=== PATIENT | female | born 1930 | race African-American/Black ===

== ENCOUNTER 2021-05-05 00:55 | Inpatient (IN) | payer MEDICARE, OTHER ==
[2021-05-05 01:35] LABS: #Monocytes 0.9 thou/uL (0.11-0.59); #Neutrophils 7.8 thou/uL (1.40-6.50); %Basophils 0.1 % (0.0-1.0); %Eosinophils 0.2 % (0.0-10.0); %Lymphocytes 18.7 % (21.0-51.0); %Monocytes 8.7 % (0.0-10.0); %Neutrophils 72.3 % (42.0-75.0); Hemoglobin 11.7 g/dL (12.0-16.0); Mean Corpuscular Hemoglobin 29.6 pg (27.0-31.0); Mean Corpuscular Volume 95.3 fL (78.0-98.0); Platelet Count 309 thou/uL (130-400); Red Blood Cell (RBC) Count 3.97 mill/uL (4.20-5.40); White Blood Cell (WBC) Count 10.7 thou/uL (4.8-10.8)
[2021-05-05 01:56] LABS: ALT (SGPT) 12 U/L (8-55); AST (SGOT) 16 U/L (5-34); Albumin 3.1 g/dL (3.4-4.8); Alkaline Phosphatase 74 U/L (40-110); Anion Gap 11 mmol/L (10-20); BUN (Urea Nitrogen) 13 mg/dL (9.8-20.1); Bilirubin, Total 1.1 mg/dL (0.2-1.2); Calc. Creatinine Clearance 0 mL/min (70-130); Calcium 11.7 mg/dL (7.8-10.44); Carbon Dioxide 27 mmol/L (23-31); Chloride 105 mmol/L (98-107); Globulin 3.4 g/dL (2.4-3.5); Glucose 103 mg/dL (83-110); Potassium 3.4 mmol/L (3.5-5.1); Protein, Total 6.5 g/dL (5.8-8.1); Sodium 140 mmol/L (136-145)
[2021-05-05] MEDS ORDERED: Aspirin Chewable 81 MG TAB ONE (04:10)
[2021-05-05] MEDS ORDERED: hydrALAZINE 20 MG/ML VIAL SLOW IVP PRN (08:14)
[2021-05-05] MEDS ORDERED: Clopidogrel Bisulfate 75 MG TAB PO SCH (09:00)
[2021-05-05] MEDS: Trospium 20 MG TAB PO SCH ×2 (10:36→22:25)
[2021-05-05] MEDS: Furosemide 20 MG TAB PO SCH (10:37)
[2021-05-05] MEDS: Enoxaparin Sodium 40 MG/0.4 ML SYRINGE SC SCH (10:37)
[2021-05-05] MEDS: Timolol 0.5% Ophth Soln 5 ml Bottle EA EYE SCH ×2 (12:12→22:31)
[2021-05-05] MEDS: Brimonidine Tartrate 0.2% Ophth Soln 5 ml Bottle EA EYE SCH ×2 (12:13→22:29)
[2021-05-05 15:25] LABS: SARS-CoV-2 PCR by NAA Not Detected (NotDetected)
[2021-05-05] MEDS ORDERED: Potassium Chloride 20 MEQ TAB PO SCH (16:00)
[2021-05-05 17:15] LABS: Hemoglobin A1c 5.4 % (4.0-6.0)
[2021-05-05 17:25] LABS: Bilirubin Negative (Negative); Blood, Urine Negative (Negative); Clarity Turbid (Clear); Glucose, Urine (Dipstick) Normal (Negative); Ketone, Urine Trace mg/dL (Negative); Leukocyte Negative Leu/uL (Negative); Nitrite Negative (Negative); Protein, Urine (Dipstick) Negative (Neg-Trace); RBC/HPF 0-3 HPF (0-3); Specific Gravity, Urine 1.018 (1.002-1.036)
[2021-05-05 17:31] LABS: Bacteria/HPF 1+ HPF (None Seen)
[2021-05-05 17:32] LABS: Urine Culture Reflex No No
[2021-05-05 17:42] LABS: Thyroid Stimulating Hormone Less than 0.0025 uIU/mL (0.35-4.94); Vitamin B12 363 pg/mL (211-911)
[2021-05-05] MEDS: Acetaminophen 325 MG TAB PO PRN (22:24)
[2021-05-05] MEDS: Atorvastatin Calcium 40 MG TAB PO SCH (22:25)
[2021-05-05] MEDS: Brinzolamide 1% Ophth SUSP 10 ml Bottle EA EYE SCH (22:29)
[2021-05-05] MEDS: Latanoprost 0.005% Ophth Soln 2.5 ml Bottle EA EYE SCH (22:29)
[2021-05-06 05:28] LABS: #Lymphocytes 1.8 thou/uL (1.20-3.40); #Monocytes 0.8 thou/uL (0.11-0.59); #Neutrophils 5.7 thou/uL (1.40-6.50); %Basophils 0.4 % (0.0-1.0); %Eosinophils 0.6 % (0.0-10.0); %Lymphocytes 21.3 % (21.0-51.0); %Monocytes 9.3 % (0.0-10.0); %Neutrophils 68.5 % (42.0-75.0); Hemoglobin 11.2 g/dL (12.0-16.0); Mean Corpuscular HGB CONC 32.8 g/dL (32.0-36.0); Mean Corpuscular Hemoglobin 31.5 pg (27.0-31.0); Mean Platelet Volume 7.7 fL (7.4-10.4); Platelet Count 280 thou/uL (130-400); RBC Distribution Width 11.8 % (11.5-14.5); Red Blood Cell (RBC) Count 3.55 mill/uL (4.20-5.40); White Blood Cell (WBC) Count 8.3 thou/uL (4.8-10.8)
[2021-05-06 05:47] LABS: Anion Gap 10 mmol/L (10-20); BUN (Urea Nitrogen) 13 mg/dL (9.8-20.1); Calc. Creatinine Clearance 62 mL/min (70-130); Calcium 11.6 mg/dL (7.8-10.44); Carbon Dioxide 27 mmol/L (23-31); Cardiac Risk 3.3 (Less than 4.5); Chloride 104 mmol/L (98-107); Cholesterol 109 mg/dl (< 200 Desired); Glucose 95 mg/dL (83-110); HDL Cholesterol 33 mg/dL (>60 Neg Risk); LDL Cholesterol, Calculated 67 mg/dL; Potassium 3.5 mmol/L (3.5-5.1); Sodium 137 mmol/L (136-145); Triglycerides 46 mg/dL (Less than 150)
[2021-05-06] MEDS: Enoxaparin Sodium 40 MG/0.4 ML SYRINGE SC SCH (08:42)
[2021-05-06] MEDS: Furosemide 20 MG TAB PO SCH (08:42)
[2021-05-06] MEDS: Clopidogrel Bisulfate 75 MG TAB PO SCH (08:42)
[2021-05-06] MEDS: Trospium 20 MG TAB PO SCH ×2 (08:42→21:08)
[2021-05-06] MEDS: Brinzolamide 1% Ophth SUSP 10 ml Bottle EA EYE SCH ×2 (08:43→21:09)
[2021-05-06] MEDS: Brimonidine Tartrate 0.2% Ophth Soln 5 ml Bottle EA EYE SCH ×2 (08:43→21:10)
[2021-05-06] MEDS: Timolol 0.5% Ophth Soln 5 ml Bottle EA EYE SCH ×2 (09:01→21:09)
[2021-05-06] MEDS ORDERED: hydrALAZINE 20 MG/ML VIAL SLOW IVP PRN (15:50)
[2021-05-06] MEDS ORDERED: Amlodipine 10 MG TAB PO SCH (16:00)
[2021-05-06] MEDS: Atorvastatin Calcium 40 MG TAB PO SCH (21:08)
[2021-05-06] MEDS: Latanoprost 0.005% Ophth Soln 2.5 ml Bottle EA EYE SCH (21:09)
[2021-05-07 05:33] LABS: #Lymphocytes 1.8 thou/uL (1.20-3.40); #Monocytes 0.6 thou/uL (0.11-0.59); %Basophils 0.2 % (0.0-1.0); %Eosinophils 0.6 % (0.0-10.0); %Monocytes 7.4 % (0.0-10.0); %Neutrophils 67.8 % (42.0-75.0); Hemoglobin 11.3 g/dL (12.0-16.0); Mean Corpuscular HGB CONC 32.1 g/dL (32.0-36.0); Mean Corpuscular Hemoglobin 30.6 pg (27.0-31.0); Mean Corpuscular Volume 95.4 fL (78.0-98.0); Mean Platelet Volume 7.4 fL (7.4-10.4); Platelet Count 305 thou/uL (130-400); RBC Distribution Width 11.8 % (11.5-14.5); Red Blood Cell (RBC) Count 3.69 mill/uL (4.20-5.40); White Blood Cell (WBC) Count 7.4 thou/uL (4.8-10.8)
[2021-05-07 05:49] LABS: Anion Gap 12 mmol/L (10-20); BUN (Urea Nitrogen) 13 mg/dL (9.8-20.1); Calc. Creatinine Clearance 58 mL/min (70-130); Calcium 11.8 mg/dL (7.8-10.44); Carbon Dioxide 25 mmol/L (23-31); Chloride 106 mmol/L (98-107); Glucose 91 mg/dL (83-110); Potassium 3.6 mmol/L (3.5-5.1); Sodium 139 mmol/L (136-145)
[2021-05-07] MEDS ORDERED: Hydrocerin (Eucerin) Cream 120 gm Jar TOP PRN (08:17)
[2021-05-07] MEDS ORDERED: Loperamide HCl 2 MG CAP PO PRN (08:17)
[2021-05-07] MEDS ORDERED: Senokot S 8.6-50 MG TAB PO PRN (08:17)
[2021-05-07] MEDS ORDERED: Melatonin 3 MG TAB PO PRN (08:17)
[2021-05-07] MEDS ORDERED: Sodium Chloride 0.65% Nasal 44 ML BOT EA NARE PRN (08:17)
[2021-05-07] MEDS ORDERED: Artificial Tear Sol 15 ML BOT EA EYE PRN (08:17)
[2021-05-07] MEDS ORDERED: GUAIFENESIN SF SOLN 200 MG/10 ML UDCUP PO PRN (08:17)
[2021-05-07] MEDS ORDERED: Ondansetron ODT 4 MG TAB PO PRN (08:17)
[2021-05-07] MEDS ORDERED: Calcium Carbonate 500 MG ChewTAB PO PRN (08:17)
[2021-05-07] MEDS ORDERED: Ondansetron PF 4 MG/2 ML Vial IVP PRN (08:17)
[2021-05-07] MEDS: Furosemide 20 MG TAB PO SCH (08:46)
[2021-05-07] MEDS: Trospium 20 MG TAB PO SCH ×3 (08:46→21:29)
[2021-05-07] MEDS: Enoxaparin Sodium 40 MG/0.4 ML SYRINGE SC SCH (08:46)
[2021-05-07] MEDS: Clopidogrel Bisulfate 75 MG TAB PO SCH (08:46)
[2021-05-07] MEDS: Brimonidine Tartrate 0.2% Ophth Soln 5 ml Bottle EA EYE SCH ×2 (08:46→21:29)
[2021-05-07] MEDS: Timolol 0.5% Ophth Soln 5 ml Bottle EA EYE SCH ×2 (08:47→21:29)
[2021-05-07] MEDS: Brinzolamide 1% Ophth SUSP 10 ml Bottle EA EYE SCH ×2 (08:57→21:29)
[2021-05-07] MEDS: Amlodipine 10 MG TAB PO SCH (09:00)
[2021-05-07] MEDS: Atorvastatin Calcium 40 MG TAB PO SCH (21:26)
[2021-05-07] MEDS: Latanoprost 0.005% Ophth Soln 2.5 ml Bottle EA EYE SCH (21:29)
[2021-05-08 05:35] LABS: #Eosinphils 0.1 thou/uL (0.0-0.7); #Lymphocytes 1.8 thou/uL (1.20-3.40); #Monocytes 0.6 thou/uL (0.11-0.59); #Neutrophils 5.1 thou/uL (1.40-6.50); %Basophils 0.3 % (0.0-1.0); %Eosinophils 0.7 % (0.0-10.0); %Lymphocytes 23.1 % (21.0-51.0); %Monocytes 8.3 % (0.0-10.0); %Neutrophils 67.7 % (42.0-75.0); Hemoglobin 11.2 g/dL (12.0-16.0); Mean Corpuscular HGB CONC 31.6 g/dL (32.0-36.0); Mean Corpuscular Hemoglobin 29.9 pg (27.0-31.0); Mean Corpuscular Volume 94.5 fL (78.0-98.0); Mean Platelet Volume 7.2 fL (7.4-10.4); Platelet Count 327 thou/uL (130-400); Red Blood Cell (RBC) Count 3.74 mill/uL (4.20-5.40); White Blood Cell (WBC) Count 7.6 thou/uL (4.8-10.8)
[2021-05-08 05:47] LABS: Anion Gap 11 mmol/L (10-20); BUN (Urea Nitrogen) 12 mg/dL (9.8-20.1); Calc. Creatinine Clearance 58 mL/min (70-130); Calcium 11.6 mg/dL (7.8-10.44); Carbon Dioxide 27 mmol/L (23-31); Chloride 104 mmol/L (98-107); Glucose 86 mg/dL (83-110); Magnesium 1.8 mg/dL (1.6-2.6); Potassium 3.4 mmol/L (3.5-5.1); Sodium 139 mmol/L (136-145)
[2021-05-08] MEDS ORDERED: Trospium 20 MG TAB PO SCH (09:00)
[2021-05-08] MEDS: Amlodipine 10 MG TAB PO SCH (09:06)
[2021-05-08] MEDS: Clopidogrel Bisulfate 75 MG TAB PO SCH (09:06)
[2021-05-08] MEDS: Enoxaparin Sodium 40 MG/0.4 ML SYRINGE SC SCH ×2 (09:07→09:09)
[2021-05-08] MEDS: Furosemide 20 MG TAB PO SCH (09:07)
[2021-05-08] MEDS: Brinzolamide 1% Ophth SUSP 10 ml Bottle EA EYE SCH ×2 (09:14→22:14)
[2021-05-08] MEDS: Brimonidine Tartrate 0.2% Ophth Soln 5 ml Bottle EA EYE SCH ×2 (09:17→22:13)
[2021-05-08] MEDS: Timolol 0.5% Ophth Soln 5 ml Bottle EA EYE SCH ×2 (09:18→22:17)
[2021-05-08] MEDS ORDERED: Senokot S 8.6-50 MG TAB PO PRN (12:00)
[2021-05-08] MEDS ORDERED: Senokot S 8.6-50 MG TAB PO SCH (12:15)
[2021-05-08] MEDS ORDERED: Magnesium 2 GM/50 ML(in water) 2 GM in Premix Bag 1 BAG IVPB SCH (12:15)
[2021-05-08] MEDS ORDERED: Polyethylene Glycol 3350 17 GM Packet PO SCH (12:15)
[2021-05-08] MEDS ORDERED: Potassium Phosphate 30 MMOL in Sodium Chloride 0.9% 250 ML 250 ML IVPB SCH (12:30)
[2021-05-08] MEDS: Senokot S 8.6-50 MG TAB PO SCH (13:24)
[2021-05-08] MEDS: Sodium Chloride 0.9% 1,000 ML IV SCH (13:25)
[2021-05-08] MEDS: Acetaminophen 325 MG TAB PO PRN (14:06)
[2021-05-08] MEDS ORDERED: Bisacodyl 10 MG SUPP PR SCH (21:00)
[2021-05-08] MEDS: Atorvastatin Calcium 40 MG TAB PO SCH (22:16)
[2021-05-08] MEDS: Cyanocobalamin (Vitamin B-12) 1,000 MCG TAB PO SCH (22:16)
[2021-05-08] MEDS: Latanoprost 0.005% Ophth Soln 2.5 ml Bottle EA EYE SCH (22:17)
[2021-05-09 05:10] LABS: Anion Gap 12 mmol/L (10-20); BUN (Urea Nitrogen) 11 mg/dL (9.8-20.1); Calc. Creatinine Clearance 58 mL/min (70-130); Calcium 11.2 mg/dL (7.8-10.44); Carbon Dioxide 24 mmol/L (23-31); Chloride 104 mmol/L (98-107); Glucose 105 mg/dL (83-110); Potassium 3.5 mmol/L (3.5-5.1); Sodium 136 mmol/L (136-145)
[2021-05-09 05:12] LABS: Phosphorus 1.9 mg/dL (2.3-4.7)
[2021-05-09] MEDS ORDERED: Potassium Chloride 20 MEQ TAB PO SCH (05:45)
[2021-05-09] MEDS ORDERED: Magnesium 2 GM/50 ML(in water) 2 GM in Premix Bag 1 BAG IVPB SCH (05:45)
[2021-05-09] MEDS ORDERED: Electrolyte Replacement Protocol FS PRN (05:45)
[2021-05-09] MEDS: PHOS-NAK 1 PKT PACK PO SCH ×2 (06:21→09:57)
[2021-05-09] MEDS: Brinzolamide 1% Ophth SUSP 10 ml Bottle EA EYE SCH ×2 (08:22→20:53)
[2021-05-09] MEDS: Brimonidine Tartrate 0.2% Ophth Soln 5 ml Bottle EA EYE SCH ×2 (08:23→20:53)
[2021-05-09] MEDS: Amlodipine 10 MG TAB PO SCH (08:24)
[2021-05-09] MEDS: Clopidogrel Bisulfate 75 MG TAB PO SCH (08:25)
[2021-05-09] MEDS: Senokot S 8.6-50 MG TAB PO SCH ×2 (08:26→20:57)
[2021-05-09] MEDS: Timolol 0.5% Ophth Soln 5 ml Bottle EA EYE SCH ×2 (08:27→21:03)
[2021-05-09] MEDS ORDERED: Polyethylene Glycol 3350 17 GM Packet PO SCH ×2 (09:00→11:00)
[2021-05-09] MEDS ORDERED: Potassium Phosphate 30 MMOL in Sodium Chloride 0.9% 250 ML 250 ML IVPB SCH (09:00)
[2021-05-09] MEDS: Sodium Chloride 0.9% 1,000 ML IV SCH (09:58)
[2021-05-09] MEDS ORDERED: Bisacodyl 10 MG SUPP PR SCH (11:15)
[2021-05-09] MEDS: Atorvastatin Calcium 40 MG TAB PO SCH (20:55)
[2021-05-09] MEDS: Cyanocobalamin (Vitamin B-12) 1,000 MCG TAB PO SCH (20:55)
[2021-05-09] MEDS: Polyethylene Glycol 3350 17 GM Packet PO SCH (20:57)
[2021-05-09] MEDS: Bisacodyl 10 MG SUPP PR SCH (20:57)
[2021-05-09] MEDS: Latanoprost 0.005% Ophth Soln 2.5 ml Bottle EA EYE SCH (21:03)
[2021-05-10 05:20] LABS: Anion Gap 9 mmol/L (10-20); BUN (Urea Nitrogen) 8 mg/dL (9.8-20.1); Calc. Creatinine Clearance 61 mL/min (70-130); Calcium 10.6 mg/dL (7.8-10.44); Carbon Dioxide 23 mmol/L (23-31); Chloride 108 mmol/L (98-107); Glucose 103 mg/dL (83-110); Potassium 3.9 mmol/L (3.5-5.1); Sodium 136 mmol/L (136-145)
[2021-05-10 05:25] LABS: Phosphorus 1.8 mg/dL (2.3-4.7)
[2021-05-10] MEDS: Sodium Chloride 0.9% 1,000 ML IV SCH ×2 (06:25→21:12)
[2021-05-10] MEDS ORDERED: Potassium Phosphate 15 MMOL in Sodium Chloride 0.9% 100 ML IVPB SCH (09:00)
[2021-05-10] MEDS: Senokot S 8.6-50 MG TAB PO SCH ×3 (09:46→20:55)
[2021-05-10] MEDS: Enoxaparin Sodium 40 MG/0.4 ML SYRINGE SC SCH (09:46)
[2021-05-10] MEDS: Clopidogrel Bisulfate 75 MG TAB PO SCH (09:47)
[2021-05-10] MEDS: Amlodipine 10 MG TAB PO SCH (09:47)
[2021-05-10] MEDS: Polyethylene Glycol 3350 17 GM Packet PO SCH ×2 (09:48→20:56)
[2021-05-10] MEDS: Bisacodyl 10 MG SUPP PR SCH ×2 (09:48→22:51)
[2021-05-10] MEDS: Timolol 0.5% Ophth Soln 5 ml Bottle EA EYE SCH ×2 (09:50→20:56)
[2021-05-10] MEDS: Brimonidine Tartrate 0.2% Ophth Soln 5 ml Bottle EA EYE SCH ×2 (09:50→20:56)
[2021-05-10] MEDS: Brinzolamide 1% Ophth SUSP 10 ml Bottle EA EYE SCH ×2 (09:50→20:56)
[2021-05-10] MEDS: Atorvastatin Calcium 40 MG TAB PO SCH (20:55)
[2021-05-10] MEDS: Latanoprost 0.005% Ophth Soln 2.5 ml Bottle EA EYE SCH (20:57)
[2021-05-10] MEDS: Cyanocobalamin (Vitamin B-12) 1,000 MCG TAB PO SCH (20:57)
[2021-05-10] MEDS: Acetaminophen 325 MG TAB PO PRN (21:07)
[2021-05-11] MEDS: Acetaminophen 325 MG TAB PO PRN ×2 (04:17→20:55)
[2021-05-11 06:18] LABS: BUN (Urea Nitrogen) 6 mg/dL (9.8-20.1); Calc. Creatinine Clearance 65 mL/min (70-130); Calcium 11.2 mg/dL (7.8-10.44); Carbon Dioxide 21 mmol/L (23-31); Chloride 107 mmol/L (98-107); Glucose 79 mg/dL (83-110); Potassium 3.9 mmol/L (3.5-5.1); Sodium 133 mmol/L (136-145)
[2021-05-11 06:26] LABS: Phosphorus 1.8 mg/dL (2.3-4.7)
[2021-05-11 06:29] LABS: Anion Gap 9 mmol/L (10-20)
[2021-05-11] MEDS: Clopidogrel Bisulfate 75 MG TAB PO SCH (08:15)
[2021-05-11] MEDS: Senokot S 8.6-50 MG TAB PO SCH ×2 (08:15→20:54)
[2021-05-11] MEDS: Amlodipine 10 MG TAB PO SCH (08:15)
[2021-05-11] MEDS: Enoxaparin Sodium 40 MG/0.4 ML SYRINGE SC SCH (08:16)
[2021-05-11] MEDS: Polyethylene Glycol 3350 17 GM Packet PO SCH ×2 (08:16→20:55)
[2021-05-11] MEDS: Bisacodyl 10 MG SUPP PR SCH ×2 (08:16→21:35)
[2021-05-11] MEDS: Brimonidine Tartrate 0.2% Ophth Soln 5 ml Bottle EA EYE SCH ×2 (08:16→21:02)
[2021-05-11] MEDS: Timolol 0.5% Ophth Soln 5 ml Bottle EA EYE SCH ×2 (08:16→21:01)
[2021-05-11] MEDS: Brinzolamide 1% Ophth SUSP 10 ml Bottle EA EYE SCH ×2 (08:17→21:01)
[2021-05-11] MEDS ORDERED: Cinacalcet HCl 30 MG TAB PO SCH (09:00)
[2021-05-11] MEDS: Cholecalciferol 1,000 UNITS (25 MCG) TAB PO SCH (10:44)
[2021-05-11] MEDS ORDERED: Potassium Phosphate 15 MMOL in Sodium Chloride 0.9% 100 ML IVPB SCH (11:00)
[2021-05-11] MEDS: Cinacalcet HCl 30 MG TAB PO SCH (17:34)
[2021-05-11] MEDS: Atorvastatin Calcium 40 MG TAB PO SCH (20:54)
[2021-05-11] MEDS: Cyanocobalamin (Vitamin B-12) 1,000 MCG TAB PO SCH (20:55)
[2021-05-11] MEDS: Latanoprost 0.005% Ophth Soln 2.5 ml Bottle EA EYE SCH (21:02)
[2021-05-11 21:26] LABS: SARS-CoV-2 PCR by NAA Not Detected (NotDetected)
[2021-05-11] MEDS: hydrALAZINE 20 MG/ML VIAL SLOW IVP PRN (21:31)
[2021-05-11] MEDS: Sodium Chloride 0.9% 1,000 ML IV SCH (21:35)
[2021-05-12] MEDS: Enoxaparin Sodium 40 MG/0.4 ML SYRINGE SC SCH (08:37)
[2021-05-12] MEDS: Amlodipine 10 MG TAB PO SCH (08:38)
[2021-05-12] MEDS: Clopidogrel Bisulfate 75 MG TAB PO SCH (08:38)
[2021-05-12] MEDS: Cholecalciferol 1,000 UNITS (25 MCG) TAB PO SCH (08:38)
[2021-05-12] MEDS: Cinacalcet HCl 30 MG TAB PO SCH ×2 (08:38→16:46)
[2021-05-12] MEDS: Senokot S 8.6-50 MG TAB PO SCH ×2 (08:38→20:18)
[2021-05-12] MEDS: Bisacodyl 10 MG SUPP PR SCH ×2 (08:38→20:17)
[2021-05-12] MEDS: Timolol 0.5% Ophth Soln 5 ml Bottle EA EYE SCH ×2 (08:39→20:16)
[2021-05-12] MEDS: Polyethylene Glycol 3350 17 GM Packet PO SCH ×2 (08:39→20:18)
[2021-05-12] MEDS: Brinzolamide 1% Ophth SUSP 10 ml Bottle EA EYE SCH ×2 (08:39→20:16)
[2021-05-12] MEDS: Brimonidine Tartrate 0.2% Ophth Soln 5 ml Bottle EA EYE SCH ×2 (08:40→20:16)
[2021-05-12] MEDS: Sodium Chloride 0.9% 1,000 ML IV SCH (16:46)
[2021-05-12] MEDS: hydrALAZINE 20 MG/ML VIAL SLOW IVP PRN (17:41)
[2021-05-12] MEDS: Cyanocobalamin (Vitamin B-12) 1,000 MCG TAB PO SCH (20:14)
[2021-05-12] MEDS: Atorvastatin Calcium 40 MG TAB PO SCH (20:14)
[2021-05-12] MEDS: Acetaminophen 325 MG TAB PO PRN (20:15)
[2021-05-12] MEDS: Latanoprost 0.005% Ophth Soln 2.5 ml Bottle EA EYE SCH (20:16)
[2021-05-13 07:17] LABS: Albumin 2.8 g/dL (3.4-4.8); Anion Gap 10 mmol/L (10-20); BUN (Urea Nitrogen) 8 mg/dL (9.8-20.1); BUN/Creatinine Ratio 14.29; Calc. Creatinine Clearance 60 mL/min (70-130); Calcium 10.2 mg/dL (7.8-10.44); Carbon Dioxide 22 mmol/L (23-31); Chloride 106 mmol/L (98-107); Glucose 66 mg/dL (83-110); Potassium 3.4 mmol/L (3.5-5.1); Sodium 135 mmol/L (136-145)
[2021-05-13 07:22] LABS: Phosphorus 1.7 mg/dL (2.3-4.7)
[2021-05-13] MEDS: Cinacalcet HCl 30 MG TAB PO SCH ×2 (08:41→17:53)
[2021-05-13] MEDS: Amlodipine 10 MG TAB PO SCH (08:41)
[2021-05-13] MEDS: Clopidogrel Bisulfate 75 MG TAB PO SCH (08:41)
[2021-05-13] MEDS: Enoxaparin Sodium 40 MG/0.4 ML SYRINGE SC SCH (08:41)
[2021-05-13] MEDS: Cholecalciferol 1,000 UNITS (25 MCG) TAB PO SCH (08:41)
[2021-05-13] MEDS: Timolol 0.5% Ophth Soln 5 ml Bottle EA EYE SCH ×2 (08:42→20:43)
[2021-05-13] MEDS: Brinzolamide 1% Ophth SUSP 10 ml Bottle EA EYE SCH ×2 (08:42→20:43)
[2021-05-13] MEDS: Brimonidine Tartrate 0.2% Ophth Soln 5 ml Bottle EA EYE SCH ×2 (08:42→20:43)
[2021-05-13] MEDS: Bisacodyl 10 MG SUPP PR SCH (08:43)
[2021-05-13] MEDS: Polyethylene Glycol 3350 17 GM Packet PO SCH ×2 (08:43→20:44)
[2021-05-13] MEDS: Senokot S 8.6-50 MG TAB PO SCH ×2 (08:43→20:44)
[2021-05-13] MEDS: Sodium Chloride 0.9% 1,000 ML IV SCH (12:43)
[2021-05-13] MEDS: Latanoprost 0.005% Ophth Soln 2.5 ml Bottle EA EYE SCH (20:43)
[2021-05-13] MEDS: Acetaminophen 325 MG TAB PO SCH (20:44)
[2021-05-13] MEDS: Atorvastatin Calcium 40 MG TAB PO SCH (20:44)
[2021-05-13] MEDS: Cyanocobalamin (Vitamin B-12) 1,000 MCG TAB PO SCH (20:44)
[2021-05-14 07:44] LABS: #Basophils 0.1 thou/uL (0.0-0.2); #Eosinphils 0.1 thou/uL (0.0-0.7); #Lymphocytes 1.7 thou/uL (1.20-3.40); #Monocytes 0.7 thou/uL (0.11-0.59); #Neutrophils 8.2 thou/uL (1.40-6.50); %Basophils 0.6 % (0.0-1.0); %Eosinophils 0.8 % (0.0-10.0); %Lymphocytes 16.1 % (21.0-51.0); %Monocytes 6.5 % (0.0-10.0); %Neutrophils 76.1 % (42.0-75.0); Hemoglobin 12.3 g/dL (12.0-16.0); Mean Corpuscular HGB CONC 32.8 g/dL (32.0-36.0); Mean Corpuscular Hemoglobin 31.2 pg (27.0-31.0); Mean Platelet Volume 6.5 fL (7.4-10.4); Platelet Count 365 thou/uL (130-400); RBC Distribution Width 12.1 % (11.5-14.5); Red Blood Cell (RBC) Count 3.93 mill/uL (4.20-5.40); White Blood Cell (WBC) Count 10.7 thou/uL (4.8-10.8)
[2021-05-14 08:03] LABS: Anion Gap 10 mmol/L (10-20); BUN (Urea Nitrogen) 6 mg/dL (9.8-20.1); BUN/Creatinine Ratio 11.32; Calc. Creatinine Clearance 63 mL/min (70-130); Calcium 9.4 mg/dL (7.8-10.44); Carbon Dioxide 23 mmol/L (23-31); Chloride 106 mmol/L (98-107); Glucose 86 mg/dL (83-110); Potassium 3.4 mmol/L (3.5-5.1); Sodium 136 mmol/L (136-145)
[2021-05-14 08:10] LABS: Phosphorus 1.9 mg/dL (2.3-4.7)
[2021-05-14] MEDS: Amlodipine 10 MG TAB PO SCH (08:21)
[2021-05-14] MEDS: Cinacalcet HCl 30 MG TAB PO SCH ×2 (08:22→16:53)
[2021-05-14] MEDS: Cholecalciferol 1,000 UNITS (25 MCG) TAB PO SCH (08:22)
[2021-05-14] MEDS: Senokot S 8.6-50 MG TAB PO SCH ×2 (08:22→20:22)
[2021-05-14] MEDS: Clopidogrel Bisulfate 75 MG TAB PO SCH (08:22)
[2021-05-14] MEDS: Enoxaparin Sodium 40 MG/0.4 ML SYRINGE SC SCH (08:23)
[2021-05-14] MEDS: Brinzolamide 1% Ophth SUSP 10 ml Bottle EA EYE SCH ×2 (08:23→20:24)
[2021-05-14] MEDS: Brimonidine Tartrate 0.2% Ophth Soln 5 ml Bottle EA EYE SCH ×2 (08:23→20:24)
[2021-05-14] MEDS: Timolol 0.5% Ophth Soln 5 ml Bottle EA EYE SCH ×2 (08:23→20:23)
[2021-05-14] MEDS: Polyethylene Glycol 3350 17 GM Packet PO SCH (08:24)
[2021-05-14] MEDS: Sodium Chloride 0.9% 1,000 ML IV SCH (08:26)
[2021-05-14] MEDS ORDERED: Potassium Phosphate 30 MMOL in Sodium Chloride 0.9% 250 ML 250 ML IVPB SCH (08:45)
[2021-05-14] MEDS ORDERED: hydrALAZINE 25 MG TAB PO PRN (14:38)
[2021-05-14] MEDS ORDERED: Electrolyte Replacement Protocol 1 EACH FS SCH (15:00)
[2021-05-14] MEDS: Atorvastatin Calcium 40 MG TAB PO SCH (20:22)
[2021-05-14] MEDS: Cyanocobalamin (Vitamin B-12) 1,000 MCG TAB PO SCH (20:22)
[2021-05-14] MEDS: Acetaminophen 325 MG TAB PO SCH (20:23)
[2021-05-14] MEDS: Latanoprost 0.005% Ophth Soln 2.5 ml Bottle EA EYE SCH (20:24)
[2021-05-15 06:37] LABS: Albumin 2.8 g/dL (3.4-4.8); Anion Gap 11 mmol/L (10-20); BUN (Urea Nitrogen) 8 mg/dL (9.8-20.1); BUN/Creatinine Ratio 15.09; Calc. Creatinine Clearance 63 mL/min (70-130); Calcium 9.4 mg/dL (7.8-10.44); Carbon Dioxide 23 mmol/L (23-31); Chloride 106 mmol/L (98-107); Glucose 96 mg/dL (83-110); Potassium 3.4 mmol/L (3.5-5.1); Sodium 137 mmol/L (136-145)
[2021-05-15 06:42] LABS: Phosphorus 1.8 mg/dL (2.3-4.7)
[2021-05-15] MEDS ORDERED: Potassium Bicarbonate/Cit Ac 20 MEQ TAB PO SCH (08:00)
[2021-05-15] MEDS ORDERED: Potassium Chloride 20 MEQ TAB PO SCH (08:00)
[2021-05-15] MEDS: PHOS-NAK 1 PKT PACK PO SCH ×2 (08:23→11:40)
[2021-05-15] MEDS: Amlodipine 10 MG TAB PO SCH (08:25)
[2021-05-15] MEDS: Senokot S 8.6-50 MG TAB PO SCH ×2 (08:25→21:22)
[2021-05-15] MEDS: Brinzolamide 1% Ophth SUSP 10 ml Bottle EA EYE SCH ×2 (08:25→21:23)
[2021-05-15] MEDS: Cholecalciferol 1,000 UNITS (25 MCG) TAB PO SCH (08:25)
[2021-05-15] MEDS: Cinacalcet HCl 30 MG TAB PO SCH ×2 (08:25→16:48)
[2021-05-15] MEDS: Clopidogrel Bisulfate 75 MG TAB PO SCH (08:25)
[2021-05-15] MEDS: Enoxaparin Sodium 40 MG/0.4 ML SYRINGE SC SCH (08:26)
[2021-05-15] MEDS: Brimonidine Tartrate 0.2% Ophth Soln 5 ml Bottle EA EYE SCH ×2 (08:26→21:23)
[2021-05-15] MEDS: Timolol 0.5% Ophth Soln 5 ml Bottle EA EYE SCH ×2 (08:26→21:23)
[2021-05-15] MEDS: Polyethylene Glycol 3350 17 GM Packet PO SCH (08:26)
[2021-05-15] MEDS: Acetaminophen 325 MG TAB PO SCH (21:22)
[2021-05-15] MEDS: Atorvastatin Calcium 40 MG TAB PO SCH (21:22)
[2021-05-15] MEDS: Cyanocobalamin (Vitamin B-12) 1,000 MCG TAB PO SCH (21:22)
[2021-05-15] MEDS: Latanoprost 0.005% Ophth Soln 2.5 ml Bottle EA EYE SCH (21:22)
[2021-05-16] MEDS: Enoxaparin Sodium 40 MG/0.4 ML SYRINGE SC SCH (08:50)
[2021-05-16] MEDS: Amlodipine 10 MG TAB PO SCH (08:52)
[2021-05-16] MEDS: Cinacalcet HCl 30 MG TAB PO SCH ×2 (08:52→16:52)
[2021-05-16] MEDS: Senokot S 8.6-50 MG TAB PO SCH ×2 (08:52→19:58)
[2021-05-16] MEDS: Cholecalciferol 1,000 UNITS (25 MCG) TAB PO SCH (08:52)
[2021-05-16] MEDS: Clopidogrel Bisulfate 75 MG TAB PO SCH (08:53)
[2021-05-16] MEDS: Brimonidine Tartrate 0.2% Ophth Soln 5 ml Bottle EA EYE SCH ×2 (08:58→19:59)
[2021-05-16] MEDS: Brinzolamide 1% Ophth SUSP 10 ml Bottle EA EYE SCH ×2 (08:59→19:59)
[2021-05-16] MEDS: Polyethylene Glycol 3350 17 GM Packet PO SCH (09:00)
[2021-05-16] MEDS: Timolol 0.5% Ophth Soln 5 ml Bottle EA EYE SCH ×2 (09:00→19:59)
[2021-05-16] MEDS: Acetaminophen 325 MG TAB PO SCH (19:57)
[2021-05-16] MEDS: Atorvastatin Calcium 40 MG TAB PO SCH (19:58)
[2021-05-16] MEDS: Cyanocobalamin (Vitamin B-12) 1,000 MCG TAB PO SCH (19:58)
[2021-05-16] MEDS: Potassium Chloride 10 MEQ TAB PO SCH (19:58)
[2021-05-16] MEDS: Latanoprost 0.005% Ophth Soln 2.5 ml Bottle EA EYE SCH (19:59)
[2021-05-17] MEDS: Brinzolamide 1% Ophth SUSP 10 ml Bottle EA EYE SCH ×2 (09:07→20:34)
[2021-05-17] MEDS: Brimonidine Tartrate 0.2% Ophth Soln 5 ml Bottle EA EYE SCH ×2 (09:07→20:34)
[2021-05-17] MEDS: Timolol 0.5% Ophth Soln 5 ml Bottle EA EYE SCH ×2 (09:07→20:34)
[2021-05-17] MEDS: Enoxaparin Sodium 40 MG/0.4 ML SYRINGE SC SCH (09:08)
[2021-05-17] MEDS: Potassium Chloride 10 MEQ TAB PO SCH ×2 (09:09→20:33)
[2021-05-17] MEDS: Senokot S 8.6-50 MG TAB PO SCH ×2 (09:09→20:32)
[2021-05-17] MEDS: Clopidogrel Bisulfate 75 MG TAB PO SCH (09:10)
[2021-05-17] MEDS: Cinacalcet HCl 30 MG TAB PO SCH ×2 (09:10→16:43)
[2021-05-17] MEDS: Amlodipine 10 MG TAB PO SCH (09:10)
[2021-05-17] MEDS: Cholecalciferol 1,000 UNITS (25 MCG) TAB PO SCH (09:10)
[2021-05-17] MEDS: Polyethylene Glycol 3350 17 GM Packet PO SCH (09:15)
[2021-05-17] MEDS: hydrALAZINE 25 MG TAB PO SCH ×2 (16:43→20:33)
[2021-05-17] MEDS: Acetaminophen 325 MG TAB PO SCH (20:32)
[2021-05-17] MEDS: Atorvastatin Calcium 40 MG TAB PO SCH (20:33)
[2021-05-17] MEDS: Cyanocobalamin (Vitamin B-12) 1,000 MCG TAB PO SCH (20:33)
[2021-05-17] MEDS: Latanoprost 0.005% Ophth Soln 2.5 ml Bottle EA EYE SCH (20:34)
[2021-05-18] MEDS: Amlodipine 10 MG TAB PO SCH (09:34)
[2021-05-18] MEDS: Potassium Chloride 10 MEQ TAB PO SCH ×2 (09:34→22:14)
[2021-05-18] MEDS: Cinacalcet HCl 30 MG TAB PO SCH ×2 (09:35→16:45)
[2021-05-18] MEDS: Cholecalciferol 1,000 UNITS (25 MCG) TAB PO SCH (09:35)
[2021-05-18] MEDS: hydrALAZINE 25 MG TAB PO SCH ×3 (09:35→22:14)
[2021-05-18] MEDS: Enoxaparin Sodium 40 MG/0.4 ML SYRINGE SC SCH (09:37)
[2021-05-18] MEDS: Clopidogrel Bisulfate 75 MG TAB PO SCH (09:37)
[2021-05-18] MEDS: Brimonidine Tartrate 0.2% Ophth Soln 5 ml Bottle EA EYE SCH ×2 (09:38→22:11)
[2021-05-18] MEDS: Timolol 0.5% Ophth Soln 5 ml Bottle EA EYE SCH ×2 (09:39→22:16)
[2021-05-18] MEDS: Brinzolamide 1% Ophth SUSP 10 ml Bottle EA EYE SCH ×2 (09:40→22:16)
[2021-05-18] MEDS: Polyethylene Glycol 3350 17 GM Packet PO SCH (09:44)
[2021-05-18] MEDS: Senokot S 8.6-50 MG TAB PO SCH ×2 (09:48→22:13)
[2021-05-18 14:22] LABS: SARS-CoV-2 PCR by NAA Not Detected (NotDetected)
[2021-05-18] MEDS: Acetaminophen 325 MG TAB PO SCH (22:13)
[2021-05-18] MEDS: Atorvastatin Calcium 40 MG TAB PO SCH (22:14)
[2021-05-18] MEDS: Cyanocobalamin (Vitamin B-12) 1,000 MCG TAB PO SCH (22:15)
[2021-05-18] MEDS: Latanoprost 0.005% Ophth Soln 2.5 ml Bottle EA EYE SCH (22:15)
[2021-05-19] MEDS: Timolol 0.5% Ophth Soln 5 ml Bottle EA EYE SCH ×2 (08:46→21:36)
[2021-05-19] MEDS: Brinzolamide 1% Ophth SUSP 10 ml Bottle EA EYE SCH ×2 (08:47→21:39)
[2021-05-19] MEDS: Brimonidine Tartrate 0.2% Ophth Soln 5 ml Bottle EA EYE SCH ×2 (08:47→21:38)
[2021-05-19] MEDS: Cinacalcet HCl 30 MG TAB PO SCH ×2 (08:49→16:55)
[2021-05-19] MEDS: Potassium Chloride 10 MEQ TAB PO SCH ×2 (08:49→21:32)
[2021-05-19] MEDS: Cholecalciferol 1,000 UNITS (25 MCG) TAB PO SCH (08:49)
[2021-05-19] MEDS: Senokot S 8.6-50 MG TAB PO SCH ×2 (08:49→21:33)
[2021-05-19] MEDS: Amlodipine 10 MG TAB PO SCH (08:50)
[2021-05-19] MEDS: Clopidogrel Bisulfate 75 MG TAB PO SCH (08:50)
[2021-05-19] MEDS: hydrALAZINE 25 MG TAB PO SCH ×3 (08:50→21:33)
[2021-05-19] MEDS: Polyethylene Glycol 3350 17 GM Packet PO SCH (08:51)
[2021-05-19] MEDS: Enoxaparin Sodium 40 MG/0.4 ML SYRINGE SC SCH (09:01)
[2021-05-19] MEDS: Acetaminophen 325 MG TAB PO SCH (21:32)
[2021-05-19] MEDS: Cyanocobalamin (Vitamin B-12) 1,000 MCG TAB PO SCH (21:32)
[2021-05-19] MEDS: Atorvastatin Calcium 40 MG TAB PO SCH (21:33)
[2021-05-19] MEDS: Latanoprost 0.005% Ophth Soln 2.5 ml Bottle EA EYE SCH (21:41)
[2021-05-20 06:42] LABS: #Eosinphils 0.1 thou/uL (0.0-0.7); #Lymphocytes 2.1 thou/uL (1.20-3.40); #Monocytes 0.6 thou/uL (0.11-0.59); #Neutrophils 4.4 thou/uL (1.40-6.50); %Basophils 0.1 % (0.0-1.0); %Eosinophils 0.8 % (0.0-10.0); %Lymphocytes 29.3 % (21.0-51.0); %Monocytes 8.1 % (0.0-10.0); %Neutrophils 61.8 % (42.0-75.0); Hemoglobin 11.8 g/dL (12.0-16.0); Mean Corpuscular HGB CONC 30.7 g/dL (32.0-36.0); Mean Corpuscular Hemoglobin 29.2 pg (27.0-31.0); Mean Corpuscular Volume 95.1 fL (78.0-98.0); Mean Platelet Volume 6.4 fL (7.4-10.4); Platelet Count 449 thou/uL (130-400); RBC Distribution Width 12.7 % (11.5-14.5); Red Blood Cell (RBC) Count 4.02 mill/uL (4.20-5.40); White Blood Cell (WBC) Count 7.1 thou/uL (4.8-10.8)
[2021-05-20 07:03] LABS: Anion Gap 12 mmol/L (10-20); BUN (Urea Nitrogen) 15 mg/dL (9.8-20.1); Calc. Creatinine Clearance 49 mL/min (70-130); Carbon Dioxide 24 mmol/L (23-31); Chloride 104 mmol/L (98-107); Glucose 100 mg/dL (83-110); Potassium 4.4 mmol/L (3.5-5.1); Sodium 136 mmol/L (136-145)
[2021-05-20 07:23] LABS: Free T4 (Free Thyroxine) 1.35 ng/dL (0.70-1.48); Thyroid Stimulating Hormone 0.008 uIU/mL (0.35-4.94)
[2021-05-20] MEDS: Brimonidine Tartrate 0.2% Ophth Soln 5 ml Bottle EA EYE SCH ×2 (09:18→22:00)
[2021-05-20] MEDS: Timolol 0.5% Ophth Soln 5 ml Bottle EA EYE SCH ×2 (09:19→21:56)
[2021-05-20] MEDS: Brinzolamide 1% Ophth SUSP 10 ml Bottle EA EYE SCH ×2 (09:19→21:58)
[2021-05-20] MEDS: Potassium Chloride 10 MEQ TAB PO SCH ×2 (09:21→21:52)
[2021-05-20] MEDS: Amlodipine 10 MG TAB PO SCH (09:21)
[2021-05-20] MEDS: hydrALAZINE 25 MG TAB PO SCH ×3 (09:21→21:53)
[2021-05-20] MEDS: Cinacalcet HCl 30 MG TAB PO SCH ×2 (09:21→16:26)
[2021-05-20] MEDS: Senokot S 8.6-50 MG TAB PO SCH ×2 (09:22→21:52)
[2021-05-20] MEDS: Enoxaparin Sodium 40 MG/0.4 ML SYRINGE SC SCH (09:22)
[2021-05-20] MEDS: Sodium Chloride 0.9% 1,000 ML IV SCH ×2 (09:22→21:50)
[2021-05-20] MEDS: Clopidogrel Bisulfate 75 MG TAB PO SCH (09:22)
[2021-05-20] MEDS: Polyethylene Glycol 3350 17 GM Packet PO SCH (09:22)
[2021-05-20 18:48] LABS: Bilirubin Negative (Negative); Blood, Urine 2+ (Negative); Clarity Extra Turbid (Clear); Glucose, Urine (Dipstick) Normal (Negative); Ketone, Urine Negative (Negative); Leukocyte 500 Leu/uL (Negative); Nitrite Negative (Negative); Protein, Urine (Dipstick) 70 mg/dL (Neg-Trace); Specific Gravity, Urine 1.009 (1.002-1.036); Squamous Epithelial None Seen HPF (0-3); Urobilinogen Normal mg/dL (Less than 2); pH, Urine 6.5 (5.0-9.0)
[2021-05-20 19:01] LABS: Bacteria/HPF 4+ HPF (None Seen); WBC/HPF Greater than 50 HPF (0-3)
[2021-05-20] MEDS ORDERED: Mirtazapine 15 MG TAB PO SCH (21:00)
[2021-05-20] MEDS: Atorvastatin Calcium 40 MG TAB PO SCH (21:53)
[2021-05-20] MEDS: Cyanocobalamin (Vitamin B-12) 1,000 MCG TAB PO SCH (21:53)
[2021-05-20] MEDS: Acetaminophen 325 MG TAB PO SCH (21:55)
[2021-05-20] MEDS: Latanoprost 0.005% Ophth Soln 2.5 ml Bottle EA EYE SCH (21:59)
[2021-05-21] MEDS: Sodium Chloride 0.9% 1,000 ML IV SCH (05:52)
[2021-05-21] MEDS ORDERED: Alendronate Sodium 70 mg Tablet PO SCH (06:15)
[2021-05-21 08:54] LABS: Anion Gap 8 mmol/L (10-20); BUN (Urea Nitrogen) 13 mg/dL (9.8-20.1); Calc. Creatinine Clearance 60 mL/min (70-130); Calcium 10.3 mg/dL (7.8-10.44); Carbon Dioxide 25 mmol/L (23-31); Chloride 107 mmol/L (98-107); Glucose 89 mg/dL (83-110); Sodium 136 mmol/L (136-145)
[2021-05-21] MEDS: Brinzolamide 1% Ophth SUSP 10 ml Bottle EA EYE SCH (09:21)
[2021-05-21] MEDS: Timolol 0.5% Ophth Soln 5 ml Bottle EA EYE SCH (09:23)
[2021-05-21] MEDS: Amlodipine 10 MG TAB PO SCH (09:25)
[2021-05-21] MEDS: Potassium Chloride 10 MEQ TAB PO SCH (09:25)
[2021-05-21] MEDS: Polyethylene Glycol 3350 17 GM Packet PO SCH (09:25)
[2021-05-21] MEDS: Clopidogrel Bisulfate 75 MG TAB PO SCH (09:25)
[2021-05-21] MEDS: Enoxaparin Sodium 40 MG/0.4 ML SYRINGE SC SCH (09:25)
[2021-05-21] MEDS: Cinacalcet HCl 30 MG TAB PO SCH (09:26)
[2021-05-21] MEDS: Senokot S 8.6-50 MG TAB PO SCH (09:26)
[2021-05-21] MEDS: hydrALAZINE 25 MG TAB PO SCH ×2 (09:26→15:37)
[2021-05-21] MEDS: Brimonidine Tartrate 0.2% Ophth Soln 5 ml Bottle EA EYE SCH (09:27)
[2021-05-21] MEDS ORDERED: Megestrol Acetate 800 MG/20 ML UDCUP PO SCH (10:45)
[2021-05-21 11:06] LABS: Magnesium 1.2 mg/dL (1.6-2.6)
[2021-05-21] MEDS ORDERED: Magnesium Sulfate In Water 4 GM in Premix Bag 1 BAG IVPB SCH (12:15)
[2021-05-21] MEDS ORDERED: PHOS-NAK 1 PKT PACK PO SCH ×2 (12:15→21:00)
[2021-05-21] MEDS ORDERED: Magnesium Sulfate 4 GM in Sodium Chloride 0.9% 250 ML 250 ML IVPB SCH (12:15)
[2021-05-21] MEDS ORDERED: Potassium Phosphate 30 MMOL in Sodium Chloride 0.9% 250 ML 250 ML IVPB SCH (12:45)
[2021-05-21 12:46] VITALS: TEMP 97.4
[2021-05-21 13:36] LABS: 24 Hr Creatinine 404.63 mg/24 hr (710-1650); Creatinine, Urine 37.64 mg/dL (47-110)
[2021-05-21 15:38] VITALS: BP 122/74
[2021-05-21] MEDS ORDERED: Magnesium Oxide 400 MG TAB PO SCH (21:00)
[2021-05-22] MEDS ORDERED: Megestrol Acetate 800 MG/20 ML UDCUP PO SCH (09:00)
== END 2021-05-21 18:24 | DRG 643 ==
LOC: ERS 00:55 → NEURO 04:16 → T4-A 05-10 18:24
PROVIDERS: ADMIT Student in an Organized Health Care Education/Training Program; ATTEND Family Medicine
DX: E21.0 Primary hyperparathyroidism (principal); G92.8 Other toxic encephalopathy; E43 Unspecified severe protein-calorie malnutrition; Z20.822 Contact with and (suspected) exposure to COVID-19; E83.52 Hypercalcemia; R53.81 Other malaise; E87.6 Hypokalemia; I10 Essential (primary) hypertension; I34.0 Nonrheumatic mitral (valve) insufficiency; E78.5 Hyperlipidemia, unspecified; E83.39 Other disorders of phosphorus metabolism; E83.42 Hypomagnesemia; E04.1 Nontoxic single thyroid nodule; Z96.643 Presence of artificial hip joint, bilateral; Z96.652 Presence of left artificial knee joint; E78.00 Pure hypercholesterolemia, unspecified; M62.50 Muscle wasting and atrophy, not elsewhere classified, unspecified site; F03.90 Unspecified dementia, unspecified severity, without behavioral disturbance, psychotic disturbance, mood disturbance, and anxiety; H40.9 Unspecified glaucoma; E05.90 Thyrotoxicosis, unspecified without thyrotoxic crisis or storm; R33.9 Retention of urine, unspecified; K59.00 Constipation, unspecified; R62.7 Adult failure to thrive; D64.9 Anemia, unspecified; L89.152 Pressure ulcer of sacral region, stage 2; Z86.73 Personal history of transient ischemic attack (TIA), and cerebral infarction without residual deficits; Z79.899 Other long term (current) drug therapy; Z79.02 Long term (current) use of antithrombotics/antiplatelets; Z68.20 Body mass index [BMI] 20.0-20.9, adult
CPT/HCPCS: 36415; 36416; 70450; 70551; 71045; 72080; 74018; 76536; 76770; 80048; 80053; 80061; 80069; 81001; 82085; 82306; 82330; 82340; 82550; 82570; 82607; 82746; 83036; 83735; 83880; 83970; 84100; 84439; 84443; 84481; 84484; 85025; 93005; 93306; 93880; 93923; 95712; 95819; 95957; J0360; J1650; J3475; J3490; J7030; J7050; U0003; U0005

== ENCOUNTER 2021-06-14 16:04 | Emergency (ER) | payer MEDICARE, OTHER ==
[~2021-06-14 16:04] MED LIST: Iopamidol-370 76% 500 ML 1 ML ONE
[2021-06-14 17:01] LABS: #Monocytes 0.7 thou/uL (0.11-0.59); #Neutrophils 8.9 thou/uL (1.40-6.50); %Basophils 0.2 % (0.0-1.0); %Eosinophils 0.1 % (0.0-10.0); %Lymphocytes 17.3 % (21.0-51.0); %Monocytes 5.6 % (0.0-10.0); %Neutrophils 76.7 % (42.0-75.0); Mean Corpuscular HGB CONC 30.6 g/dL (32.0-36.0); Mean Corpuscular Hemoglobin 29.4 pg (27.0-31.0); Mean Corpuscular Volume 95.9 fL (78.0-98.0); Mean Platelet Volume 8.1 fL (7.4-10.4); Platelet Count 401 thou/uL (130-400); RBC Distribution Width 14.8 % (11.5-14.5); Red Blood Cell (RBC) Count 4.43 mill/uL (4.20-5.40); White Blood Cell (WBC) Count 11.7 thou/uL (4.8-10.8)
[2021-06-14] MEDS ORDERED: cefTRIAXone\\ROCEPHIN 1 GM VIAL ONE (17:15)
[2021-06-14 17:23] LABS: ALT (SGPT) 16 U/L (8-55); AST (SGOT) 21 U/L (5-34); Albumin 3.6 g/dL (3.4-4.8); Alkaline Phosphatase 81 U/L (40-110); Anion Gap 15 mmol/L (10-20); BUN (Urea Nitrogen) 43 mg/dL (9.8-20.1); Bilirubin, Total 1.4 mg/dL (0.2-1.2); Calc. Creatinine Clearance 0 mL/min (70-130); Carbon Dioxide 24 mmol/L (23-31); Chloride 113 mmol/L (98-107); Globulin 4.4 g/dL (2.4-3.5); Glucose 113 mg/dL (83-110); Lipase 25 U/L (8-78); Magnesium 2.1 mg/dL (1.6-2.6); Sodium 149 mmol/L (136-145)
[2021-06-14 17:29] LABS: Calcium 14.5 mg/dL (7.8-10.44)
[2021-06-14 17:47] LABS: CKMB 0.5 ng/mL (0-6.6)
[2021-06-14] MEDS ORDERED: CALCITONIN SALMON SYNTHETIC IM SCH (18:45)
[2021-06-14] MEDS ORDERED: PRE FILLED IM SCH (18:45)
[2021-06-14 19:15] LABS: SARS-CoV-2 NAA Rapid Test Not Detected (NotDetected)
[2021-06-14 20:06] LABS: Bilirubin Negative (Negative); Blood, Urine Small (Negative); Glucose, Urine (Dipstick) Negative (Negative); Ketone, Urine Negative (Negative); Leukocyte Large (Negative); Nitrite Negative (Negative); Protein, Urine (Dipstick) Trace mg/dL (Neg-Trace); Specific Gravity, Urine 1.015 (1.005-1.030)
[2021-06-14 20:12] LABS: Clarity Cloudy (Clear)
[2021-06-14 20:13] LABS: Bacteria/HPF 4+ HPF (None Seen)
== END 2021-06-14 20:09 | disposition short-term general hospital (02) ==
LOC: ERS 16:04
DX: A41.9 Sepsis, unspecified organism (principal); E86.0 Dehydration; R77.8 Other specified abnormalities of plasma proteins; E21.3 Hyperparathyroidism, unspecified; E05.90 Thyrotoxicosis, unspecified without thyrotoxic crisis or storm; I10 Essential (primary) hypertension; E78.5 Hyperlipidemia, unspecified; Z20.822 Contact with and (suspected) exposure to COVID-19; Z86.73 Personal history of transient ischemic attack (TIA), and cerebral infarction without residual deficits
CPT/HCPCS: 0240U; 71045; 74177; 82553; 83605; 83690; 83735; 84484; 87040; 87086; 93005; J0630; 36415; 51701; 80053; 81003; 81015; 84443; 85025; 96365; 96372; J0696; Q9967

== ENCOUNTER 2021-07-03 22:13 | Inpatient (IN) | payer MEDICARE, OTHER ==
[2021-07-03 23:58] LABS: #Lymphocytes 1.6 thou/uL (1.20-3.40); #Monocytes 0.7 thou/uL (0.11-0.59); #Neutrophils 14.8 thou/uL (1.40-6.50); %Basophils 0.2 % (0.0-1.0); %Lymphocytes 9.6 % (21.0-51.0); %Monocytes 4.2 % (0.0-10.0); %Neutrophils 86.1 % (42.0-75.0); Hemoglobin 10.6 g/dL (12.0-16.0); Mean Corpuscular HGB CONC 30.9 g/dL (32.0-36.0); Mean Corpuscular Volume 97.1 fL (78.0-98.0); Mean Platelet Volume 7.6 fL (7.4-10.4); Platelet Count 398 thou/uL (130-400); RBC Distribution Width 17.3 % (11.5-14.5); Red Blood Cell (RBC) Count 3.53 mill/uL (4.20-5.40); White Blood Cell (WBC) Count 17.2 thou/uL (4.8-10.8)
[2021-07-04 00:16] LABS: ALT (SGPT) 8 U/L (8-55); AST (SGOT) 17 U/L (5-34); Albumin 2.9 g/dL (3.4-4.8); Alkaline Phosphatase 91 U/L (40-110); Anion Gap 15 mmol/L (10-20); BUN (Urea Nitrogen) 22 mg/dL (9.8-20.1); Bilirubin, Total 2.1 mg/dL (0.2-1.2); Calc. Creatinine Clearance 0 mL/min (70-130); Carbon Dioxide 21 mmol/L (23-31); Chloride 109 mmol/L (98-107); Globulin 3.8 g/dL (2.4-3.5); Glucose 81 mg/dL (83-110); Potassium 3.4 mmol/L (3.5-5.1); Protein, Total 6.7 g/dL (5.8-8.1); Sodium 142 mmol/L (136-145)
[2021-07-04 00:35] LABS: Calcium 12.6 mg/dL (7.8-10.44)
[2021-07-04 00:38] LABS: CKMB 1.2 ng/mL (0-6.6)
[2021-07-04] MEDS ORDERED: cefTRIAXone\\ROCEPHIN 1 GM VIAL ONE (00:54)
[2021-07-04 01:32] LABS: Bilirubin Negative (Negative); Blood, Urine 1+ (Negative); Clarity Extra Turbid (Clear); Glucose, Urine (Dipstick) Normal (Negative); Ketone, Urine 20 mg/dL (Negative); Leukocyte 500 Leu/uL (Negative); Nitrite Negative (Negative); Protein, Urine (Dipstick) 50 mg/dL (Neg-Trace); Specific Gravity, Urine 1.017 (1.002-1.036); pH, Urine 5.5 (5.0-9.0)
[2021-07-04 01:42] LABS: Bacteria/HPF 4+ HPF (None Seen); RBC/HPF None Seen HPF (0-3); Transitional Epithelial 0-3 HPF (None Seen); WBC/HPF Greater Than 50 HPF (0-3)
[2021-07-04] MEDS ORDERED: Vancomycin 1 GM/200 ML BAG ONE (01:55)
[2021-07-04] MEDS ORDERED: Senokot S 8.6-50 MG TAB PO PRN (02:28)
[2021-07-04] MEDS ORDERED: Acetaminophen 325 MG TAB PO PRN (02:28)
[2021-07-04] MEDS ORDERED: Ondansetron PF 4 MG/2 ML Vial IVP PRN (02:28)
[2021-07-04] MEDS ORDERED: Melatonin 3 MG TAB PO PRN (02:35)
[2021-07-04 03:24] LABS: Troponin I 0.111 ng/mL (< 0.028)
[2021-07-04 03:58] VITALS: BMI 17.1
[2021-07-04] MEDS: Sodium Chloride 0.9% 1,000 ML IV SCH ×2 (04:12→16:50)
[2021-07-04 06:08] LABS: Troponin I 0.046 ng/mL (< 0.028)
[2021-07-04 07:03] LABS: #Lymphocytes 1.7 thou/uL (1.20-3.40); #Monocytes 0.7 thou/uL (0.11-0.59); #Neutrophils 12.9 thou/uL (1.40-6.50); %Basophils 0.2 % (0.0-1.0); %Eosinophils 0.1 % (0.0-10.0); %Lymphocytes 10.9 % (21.0-51.0); %Monocytes 4.5 % (0.0-10.0); %Neutrophils 84.3 % (42.0-75.0); Hemoglobin 9.2 g/dL (12.0-16.0); Mean Corpuscular HGB CONC 30.5 g/dL (32.0-36.0); Mean Corpuscular Hemoglobin 29.6 pg (27.0-31.0); Mean Corpuscular Volume 97.2 fL (78.0-98.0); Mean Platelet Volume 7.2 fL (7.4-10.4); Platelet Count 373 thou/uL (130-400); RBC Distribution Width 17.4 % (11.5-14.5); Red Blood Cell (RBC) Count 3.11 mill/uL (4.20-5.40); White Blood Cell (WBC) Count 15.3 thou/uL (4.8-10.8)
[2021-07-04 07:31] LABS: ALT (SGPT) Less than 7 U/L (8-55); AST (SGOT) 15 U/L (5-34); Albumin 2.5 g/dL (3.4-4.8); Alkaline Phosphatase 72 U/L (40-110); Anion Gap 13 mmol/L (10-20); BUN (Urea Nitrogen) 20 mg/dL (9.8-20.1); Bilirubin, Total 1.5 mg/dL (0.2-1.2); Calc. Creatinine Clearance 45 mL/min (70-130); Carbon Dioxide 20 mmol/L (23-31); Chloride 113 mmol/L (98-107); Globulin 3.9 g/dL (2.4-3.5); Glucose 96 mg/dL (83-110); Potassium 3.2 mmol/L (3.5-5.1); Protein, Total 6.4 g/dL (5.8-8.1); Sodium 143 mmol/L (136-145)
[2021-07-04 14:22] LABS: SARS-CoV-2 PCR by NAA Not Detected (NotDetected)
[2021-07-04] MEDS: Mirtazapine 15 MG TAB PO SCH ×2 (21:38→23:23)
[2021-07-04] MEDS: Nystatin 500,000 UNITS/5 ML UDCUP SSW SCH ×2 (21:39→23:23)
[2021-07-04] MEDS ORDERED: cefTRIAXone\\ROCEPHIN 1 GM in Sodium Chloride 0.9% 100 ML IVPB SCH (22:00)
[2021-07-05] MEDS ORDERED: Vancomycin HCl 750 MG in Sodium Chloride 0.9% 250 ML 250 ML IVPB SCH (02:00)
[2021-07-05] MEDS: Clopidogrel Bisulfate 75 MG TAB PO SCH (09:05)
[2021-07-05] MEDS: Mirtazapine 15 MG TAB PO SCH ×2 (09:05→20:38)
[2021-07-05] MEDS: Nystatin 500,000 UNITS/5 ML UDCUP SSW SCH ×4 (09:06→20:38)
[2021-07-05] MEDS ORDERED: traMADol HCl 50 MG TAB PO PRN (16:30)
[2021-07-05] MEDS: Sodium Chloride 0.9% 1,000 ML IV SCH (19:33)
[2021-07-06] MEDS: Nystatin 500,000 UNITS/5 ML UDCUP SSW SCH ×4 (09:06→20:20)
[2021-07-06] MEDS: Mirtazapine 15 MG TAB PO SCH ×2 (09:06→20:20)
[2021-07-06] MEDS: Clopidogrel Bisulfate 75 MG TAB PO SCH (09:06)
[2021-07-07 08:21] VITALS: BP 145/89; TEMP 98.2
[2021-07-07] MEDS: Mirtazapine 15 MG TAB PO SCH (08:45)
[2021-07-07] MEDS: Clopidogrel Bisulfate 75 MG TAB PO SCH (08:45)
[2021-07-07] MEDS: Nystatin 500,000 UNITS/5 ML UDCUP SSW SCH ×2 (08:46→13:17)
== END 2021-07-07 15:44 | disposition hospice, home (50) | DRG 871 ==
LOC: ERS 22:13 → NEURO 07-04 02:03 → OBSVTOIN 07-04 18:59 → T4-B 07-05 18:40
PROVIDERS: ADMIT Family Medicine; ATTEND Family Medicine
DX: A41.51 Sepsis due to Escherichia coli [E. coli] (principal); Z66 Do not resuscitate; Z20.822 Contact with and (suspected) exposure to COVID-19; Z51.5 Encounter for palliative care; E43 Unspecified severe protein-calorie malnutrition; G93.41 Metabolic encephalopathy; Z68.1 Body mass index [BMI] 19.9 or less, adult; N39.0 Urinary tract infection, site not specified; I24.8 Other forms of acute ischemic heart disease; F03.90 Unspecified dementia, unspecified severity, without behavioral disturbance, psychotic disturbance, mood disturbance, and anxiety; I10 Essential (primary) hypertension; E78.5 Hyperlipidemia, unspecified; Z96.643 Presence of artificial hip joint, bilateral; Z96.651 Presence of right artificial knee joint; E21.0 Primary hyperparathyroidism; E87.6 Hypokalemia; E78.00 Pure hypercholesterolemia, unspecified; L89.152 Pressure ulcer of sacral region, stage 2; L89.629 Pressure ulcer of left heel, unspecified stage; L89.619 Pressure ulcer of right heel, unspecified stage; Z79.899 Other long term (current) drug therapy; Z79.02 Long term (current) use of antithrombotics/antiplatelets; Z86.73 Personal history of transient ischemic attack (TIA), and cerebral infarction without residual deficits
CPT/HCPCS: 36415; 51701; 70450; 71045; 80053; 81003; 81015; 82553; 83605; 84484; 85025; 87040; 87077; 87086; 87186; 93005; 96365; 96367; J0696; J3370; J3490; J7050; U0003; U0005